=== PATIENT | male | born 1985 | race Caucasian/White ===

== ENCOUNTER 2020-05-11 22:20 | Inpatient (IN) | payer OTHER ==
[~2020-05-11] VITALS: Ht 182.9 cm; Wt 95.0 kg
[2020-05-11] MEDS ORDERED: FLUO20CA20 PO (23:00)
[2020-05-11] MEDS ORDERED: NALT50TA4 PO (23:01)
[2020-05-11 23:43] LABS: HEMATOCRIT 40.5 % (42.0-52.0); HEMOGLOBIN 13.7 g/dl (13.5-17.5); MEAN CORPUSCULAR HEMOGLOBIN 29.8 pg (27.0-33.0); MEAN CORPUSCULAR HGB CONC 33.8 g/dl (32.0-36.5); MEAN CORPUSCULAR VOLUME 88.2 fl (80.0-96.0); PLATELET COUNT, AUTOMATED 285 10^3/uL (150-450); RED BLOOD COUNT 4.59 10^6/uL (4.30-6.10); WHITE BLOOD COUNT 8.2 10^3/uL (4.0-10.0)
[2020-05-12 00:12] LABS: AMPHETAMINES LEVEL URINE NEGATIVE (NEGATIVE); BARBITURATES URINE NEGATIVE (NEGATIVE); BENZODIAZEPINES URINE NEGATIVE (NEGATIVE); CANNABINOIDS URINE NEGATIVE (NEGATIVE); COCAINE METABOLITE URINE NEGATIVE (NEGATIVE); METHADONE URINE NEGATIVE (NEGATIVE); OPIATES URINE NEGATIVE (NEGATIVE); PHENCYCLIDINE URINE NEGATIVE (NEGATIVE)
[2020-05-12 00:25] LABS: ACETAMINOPHEN LEVEL < 2.0 UG/ML (10.0-30.0); ALBUMIN 4.4 GM/DL (3.2-5.2); ALT/SGPT 40 U/L (12-78); BILIRUBIN,DIRECT 0.2 MG/DL (0.0-0.2); BILIRUBIN,TOTAL 0.7 MG/DL (0.2-1.0); BLOOD UREA NITROGEN 7 MG/DL (7-18); CALCIUM LEVEL 9.6 MG/DL (8.5-10.1); CARBON DIOXIDE LEVEL 30 MEQ/L (21-32); CHLORIDE LEVEL 104 MEQ/L (98-107); ETHYL ALCOHOL (ETHANOL) < 0.003 % (0.000-0.010); GLOMERULAR FILTRATION RATE > 60.0 (>60); GLUCOSE, FASTING 102 MG/DL (70-100); POTASSIUM SERUM 3.5 MEQ/L (3.5-5.1); SALICYLATE LEVEL < 1.7 MG/DL (5.0-30.0); SODIUM LEVEL 139 MEQ/L (136-145); TOTAL PROTEIN 7.6 GM/DL (6.4-8.2)
[2020-05-12] MEDS ORDERED: MOM 30ML SUSPENSION UDC PO PRN (01:45)
[2020-05-12] MEDS ORDERED: MAALOX 30 ML SUSP *UDC PO PRN (01:45)
[2020-05-12] MEDS ORDERED: ACETAMINOPHEN TAB 650MG DOSE (2X325MG) PO PRN (01:45)
[2020-05-12] MEDS ORDERED: LORazepam 2 MG TAB PO PRN (01:45)
[2020-05-12] MEDS ORDERED: BIMA01SOL OU (02:00)
[2020-05-12] MEDS ORDERED: HYDR50CA2 PO (02:00)
[2020-05-12] MEDS ORDERED: LOSA100T5 PO (02:00)
[2020-05-12 03:19] VITALS: BP 132/85
[2020-05-12 04:52] VITALS: BP 132/85
[2020-05-12] MEDS: LOSARTAN 50MG TABLET PO SCH (08:32)
[2020-05-12] MEDS: hydroCHLOROthiazide 25 MG TAB PO SCH (08:32)
[2020-05-12] MEDS: THIAMINE 100 MG TAB PO SCH ×2 (08:32→21:01)
[2020-05-12] MEDS: FLUoxetine 20 MG CAP PO SCH (08:32)
[2020-05-12] MEDS: hydrOXYzine 50 MG TAB PO SCH (08:33)
[2020-05-12] MEDS: NICOTINE 21MG/24HR 1 EA TRANSDERMAL TD SCH (08:34)
[2020-05-12] MEDS ORDERED: FOLIC ACID 1 MG TAB PO SCH (09:00)
[2020-05-12] MEDS ORDERED: MULTIVITAMINS/MINERALS THERAP 1 TAB PO SCH (09:00)
--- NOTE | 2020-05-12 11:21 | MHHPEPDOC ---
[facility] History & Physical History and Physical DATE OF ADMISSION: May 12, 2020 at 01:37 Subjective HPI: Ran presents today for concerns regarding his marriage and lack of medication. Patient denies hearing voices, staying up all night weeks at a time for no reason, history of trauma from combat. Patient denies any current suicidal thoughts. MEDICATIONS: Patient has run out of Fluoxetine. He has been off his medication for 5 days. Current medications include Prozac, prescribed by Lieutenant Colonel Kim from [place]. MEDICAL HISTORY: Patient has been going to [facility] for 8-9 years. He went to alcohol rehab in October at [place]. Patient has not ever been in a patient psychiatry setting before. FAMILY HISTORY: Patients sister has bipolar disorder and has been treated for it. SOCIAL HISTORY - OCCUPATION: Patient worked in the for 9.5 years, branch unspecified. 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 He states work is another stressor because hes under investigation for an unspecified action by a female co-worker. SOCIAL HISTORY - LIVING SITUATION: Patients of 12 years threw him out of their house. He hasnt been sleeping Tuesday. Last night was the first night that he got a proper sleep. Patients is now talking to another trista. Patient has kids and drives a motorcycle. Patient and his have had problems in the past including situations where shes thrown him out before, and another where shes left for 1-2 months and returns to give their relationship another chance. Patients americo jaramillo called the Police, who contacted the patient and brought an internal investigator to help him out with the situation of his marriage and calm him down. After the patient was thrown out by his , he lived in his car for a few days, then got a hotel so his kids could come stay with him for a bit, and then had to go to the field, hes planning on returning to the [employer]. SOCIAL HISTORY - SUBSTANCE USE: Patient has not consumed alcohol in 3 weeks. SOCIAL HISTORY - SMOKING: Patient smokes a pack of cigarettes daily and used to smoke marijuana when he was 15-18. Objective Appearance: Appears to be stated age. Well groomed. Well nourished. Behavior: Engaged. Pleasant. Cooperative with good eye contact. Affect: Full range. Appropriate to context. Mood: Generally good. Euthymic. Appropriately reactive. Speech: Spontaneous and Fluid. Normal rate. Normal volume. Motor: No gross motor abnormalities. Cognition: Alert, Attentive, and Oriented to person, place, time. Memory: No formal testing. No gross abnormalities of short or exterminator termite memory noted during interview. Thought Form: Linear and goal directed. Thought Content: No evidence of suicidal ideation. No evidence of aggressive or homicidal ideation. No thoughts of self harm. No evidence of delusions. Perception: No perceptual abnormalities noted. Judgement: Intact as evidenced by decision making in the recent past. Insight: Good insight into symptoms and treatment options. Assessment F43.20 Adjustment disorder, unspecified F10.11 Alcohol abuse, in remission Plan Continue Prozac 60 mg Observe extension on 939 for now. Well try to reduce stressors by helping facilitate [employer] placement and help reduce chances of suicide as my legacy has 1-3 days. Vital Signs Vital Signs Date Time Temp Pulse Resp B/P (MAP) Pulse Ox O2 Delivery O2 Flow Rate FiO2 05/12/20 08:32 132/85 05/12/20 04:52 97.5 69 16 100 Room Air Laboratory Data 24H Labs Laboratory Tests 2 05/11/20 23:31: Nucleated Red Blood Cells % (auto) 0.0, Anion Gap 5L, Glomerular Filtration Rate > 60.0, Calcium Level 9.6, Total Bilirubin 0.7, Direct Bilirubin 0.2, Aspartate Amino Transf (AST/SGOT) 22, Alanine Aminotransferase (ALT/SGPT) 40, Alkaline Phosphatase 81, Total Protein 7.6, Albumin 4.4, Albumin/Globulin Ratio 1.4, Thyroid Stimulating Hormone (TSH) 1.400, Salicylates Level < 1.7L, Urine Opiates Screen NEGATIVE, Urine Methadone Screen NEGATIVE, Acetaminophen Level < 2.0L, Urine Barbiturates Screen NEGATIVE, Urine Phencyclidine Screen NEGATIVE, Urine Amphetamines Screen NEGATIVE, Urine Benzodiazepines Screen NEGATIVE, Urine Cocaine Metabolite Screen NEGATIVE, Urine Cannabinoids Screen NEGATIVE, Ethyl Alcohol Level < 0.003 CBC/BMP Laboratory Tests 05/11/20 23:31 Medications Scheduled Bimatoprost (Lumigan) 0.01% 2.5ML Drops, 1 DROP OU QHS, (Reported) Fluoxetine Hcl (Fluoxetine HCl) 20 Mg Capsule, 60 MG PO DAILY, (Reported) Hydroxyzine Pamoate (Hydroxyzine Pamoate) 50 Mg Capsule, 50 MG PO DAILY, (Reported) Losartan/Hydrochlorothiazide (Losartan-Hctz 100-25 mg Tab) 1 Each Tablet, 1 TAB PO DAILY, (Reported) Naltrexone HCl (Naltrexone HCl) 50 Mg Tablet, 50 MG PO QHS, (Reported) Allergies Coded Allergies: No Known Allergies (Verified Allergy, Unknown, 05/12/20) MATTHEW JOY DO May 12, 2020 11:21
[2020-05-12 11:30] VITALS: BP 137/86
--- NOTE | 2020-05-12 11:55 | HPEPDOC ---
[facility] Medical History & Physical Date of Admission May 12, 2020 Date of Service: May 12, 2020 Attending Physician: BRANDON HARDWICK MD History and Physical CHIEF COMPLAINT: suicidal ideation HISTORY OF PRESENT ILLNESS: Mr. Art is a pleasant 34-year-old male, with a history of hypertension, glaucoma, etoh use disorder (on naltrexone) anxiety and depression. 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 He presented to the ED after family called police for suspected suicidal ideation. Patient recently from his spouse with whom he has 4 children. Separation occured due to excess drinking, per patient. Patient concerned that separation is irreconcilable. He developed thoughts of taking his own life. Family concerned, called MPs who brought him back from training exercises. States he denies active suicidal ideation. States that he has no plan. In the ED, UDS was negative. Alcohol level negative. On arrival, to ED BP 181/105. HR 61. SpOe 100%, RR 18. T 97.4. Of note, patient states that he follows up with Dr. Valadez in [place]. He reports having been told he has left ventricular hypertrophy. Denies a history of close family relatives sudden cardiac . He currently denies active or past chest pain, shortness of breath, fainting, lightheadedness, dizziness, palpitations. PAST MEDICAL HISTORY: HTN Glaucoma Depression Anxiety ETOH use disorder PAST SURGICAL HISTORY: L ankle orif SOCIAL HISTORY: Smoker 2 ppd, 10 pack year history ETOH use disorder, last drink 3 weeks ago Drinks 12-18 beers/day Active FAMILY HISTORY: Father - HTN Mother - HTN ALLERGIES: Please see below. REVIEW OF SYSTEMS: CONSTITUTIONAL: patient denies fevers, chills HEENT: patient denies blurred vision, loss of vision, headache,. CARDIOVASCULAR: patient denies chest pain, palpitations. RESPIRATORY: patient denies shortness of breath, cough, hemoptysis. GASTROINTESTINAL: patient denies abdominal pain, n/v/d, blood in stool. GENITOURINARY: patient denies dysuria, discharge. SKIN: patient denies rashes. MUSCULOSKELETAL: patient denies joint pain, neck pain. NEUROLOGICAL: patient denies focal weakness, numbness, seizures. PSYCHIATRIC: admitted for recent SI. Denies SI at this time, has no plan. ENDOCRINE: patient denies polyuria, heat intolerance, cold intolerance. HEMATOLOGIC/LYMPHATIC: patient denies easy bruising. HOME MEDICATIONS: Please see below. PHYSICAL EXAMINATION: VITAL SIGNS: please see below General: NAD, comfortable HEENT: PERRLA, EOMI, sclerae clear Neck: supple, normal ROM, no JVD Respiratory: lungs CTAB, no wheeze, no rales, no crackles CVS: RRR, normal S1, S2, no murmurs Abdo: soft, no masses, no hepatosplenomegaly, BS+, no rebound tenderness Extremities: no edema, pulses 2+ MSK: no joint deformities, normal ROM. L ankle incision scars, s/p orif. Neuro: no focal neuro deficits, moving all 4 extremities, CN2-12 intact. Strength 5/5 in all 4 extremities. No nystagmus. Psych: calm, cooperative, AAO x 3 LABORATORY DATA: See below. MICROBIOLOGY: Please see below. ASSESSMENT: 34 yo M with a hx of HTN, etoh use disorder, anxiety and depression, admitted to [facility] for suicidal ideation. Consulted hospitalist service for medical management. PLAN: SI: per psychiatry Depression/Anxiety: per psychiatry ETOH use disorder: CIWA, ativan prn, thiamine. Takes naltrexone. HTN: BP 132/85 this morning. states previously taking HCTZ, losartan. Follows with Dr. Valadez in [place], states hx of LVH on echo. Asymptomatic. No family hx of sudden cardiac . Agree to resume HCTZ 25 mg PO daily, losartan 100 mg daily follow up outpatient. Thank you very much for the consult. Please re-consult as appropriate. Vital Signs Vital Signs Date Time Temp Pulse Resp B/P (MAP) Pulse Ox O2 Delivery O2 Flow Rate FiO2 05/12/20 08:32 132/85 05/12/20 04:52 97.5 69 16 100 Room Air Laboratory Data Labs 24H Laboratory Tests 2 05/11/20 23:31: Nucleated Red Blood Cells % (auto) 0.0, Anion Gap 5L, Glomerular Filtration Rate > 60.0, Calcium Level 9.6, Total Bilirubin 0.7, Direct Bilirubin 0.2, Aspartate Amino Transf (AST/SGOT) 22, Alanine Aminotransferase (ALT/SGPT) 40, Alkaline Phosphatase 81, Total Protein 7.6, Albumin 4.4, Albumin/Globulin Ratio 1.4, Thyroid Stimulating Hormone (TSH) 1.400, Salicylates Level < 1.7L, Urine Opiates Screen NEGATIVE, Urine Methadone Screen NEGATIVE, Acetaminophen Level < 2.0L, Urine Barbiturates Screen NEGATIVE, Urine Phencyclidine Screen NEGATIVE, Urine Amphetamines Screen NEGATIVE, Urine Benzodiazepines Screen NEGATIVE, Urine Cocaine Metabolite Screen NEGATIVE, Urine Cannabinoids Screen NEGATIVE, Ethyl Alcohol Level < 0.003 CBC/BMP Laboratory Tests 05/11/20 23:31 Home Medications Scheduled Bimatoprost (Lumigan) 0.01% 2.5ML Drops, 1 DROP OU QHS Fluoxetine Hcl (Fluoxetine HCl) 20 Mg Capsule, 60 MG PO DAILY Hydroxyzine Pamoate (Hydroxyzine Pamoate) 50 Mg Capsule, 50 MG PO DAILY Losartan/Hydrochlorothiazide (Losartan-Hctz 100-25 mg Tab) 1 Each Tablet, 1 TAB PO DAILY Naltrexone HCl (Naltrexone HCl) 50 Mg Tablet, 50 MG PO QHS Allergies Coded Allergies: No Known Allergies (Verified Allergy, Unknown, 05/12/20) A-FIB/CHADSVASC A-FIB History Current/History of A-Fib/PAF?: No Current PO Anticoag Therapy: No BRANDON HARDWICK MD May 12, 2020 11:55
[2020-05-12 17:53] VITALS: BP 137/86
[2020-05-12 19:55] VITALS: BP 131/75
[2020-05-12] MEDS: traZODone 50 MG TAB PO PRN (21:01)
[2020-05-12] MEDS: NALTREXONE 50 MG TAB PO SCH (21:01)
[2020-05-13 04:30] VITALS: BP 129/70
[2020-05-13] MEDS: hydroCHLOROthiazide 25 MG TAB PO SCH (08:50)
[2020-05-13] MEDS: LOSARTAN 50MG TABLET PO SCH (08:51)
[2020-05-13] MEDS: FLUoxetine 20 MG CAP PO SCH (08:51)
[2020-05-13] MEDS: NICOTINE 21MG/24HR 1 EA TRANSDERMAL TD SCH (08:52)
[2020-05-13] MEDS: hydrOXYzine 50 MG TAB PO SCH (08:52)
--- NOTE | 2020-05-13 10:47 | MHIPNPDOC ---
[facility] Progress Note Progress Note DATE OF SERVICE: 05/13/20 Subjective HPI: Ran presents today for concerns regarding his discharge tomorrow. He denies headaches and stomachaches relating to his medication. MEDICATIONS: Current medications include Prozac. Patient would like a prescription for Atarax as it helped at night. Objective Appearance: Appears to be stated age. Well nourished. Well groomed. Behavior: Engaged. Cooperative with good eye contact. Pleasant. Affect: Full range. Appropriate to context. Mood: Appropriately reactive. Generally good. Euthymic. Speech: Normal volume. Spontaneous and Fluid. Normal rate. Motor: No gross motor abnormalities. Cognition: Alert, Attentive, and Oriented to person, place, time. Memory: No formal testing. No gross abnormalities of short or manager intermediate memory noted during interview. Thought Form: Linear and goal directed. Thought Content: No evidence of aggressive or homicidal ideation. No evidence of delusions. No evidence of suicidal ideation. No thoughts of self harm. Perception: No perceptual abnormalities noted. Judgement: Intact as evidenced by decision making in the recent past. Insight: Good insight into symptoms and treatment options. Assessment F43.20 Adjustment disorder, unspecified F10.11 Alcohol abuse, in remission Plan Continue Prozac. Discharge tomorrow, inform discharge planners. Vital Signs Vital Signs Date Time Temp Pulse Resp B/P (MAP) Pulse Ox O2 Delivery O2 Flow Rate FiO2 05/13/20 08:51 129/70 05/13/20 04:30 71 05/13/20 04:30 98.0 16 98 Room Air Current Medications Current Medications Medications (Trade) Dose Ordered Sig/Lara Route PRN Reason Start Time Stop Time Status Last Admin Dose Admin Acetaminophen (Tylenol Tab) 650 mg Q6HP PRN PO HEADACHE or DISCOMFORT 05/12/20 01:45 Al Hydrox/Mg Hydrox/Simethicone (Mylanta) 30 ml Q4HP PRN PO HEARTBURN/INDIGESTION 05/12/20 01:45 Fluoxetine HCl (PROzac) 60 mg DAILY PO 05/12/20 09:00 05/13/20 08:51 Folic Acid (Folic Acid) 1 mg DAILY PO 05/12/20 09:00 05/13/20 05:12 DC 05/12/20 08:33 Home Med (Med Rec Complete!) ASDIRECTED XX 05/12/20 01:00 05/12/20 00:59 DC Home Med (Med Rec Complete!) ASDIRECTED XX 05/12/20 02:15 05/12/20 02:06 DC Hydrochlorothiazide (Hydrodiuril) 25 mg DAILY PO 05/12/20 09:00 05/13/20 08:50 Hydroxyzine HCl (Atarax) 50 mg DAILY PO 05/12/20 09:00 05/13/20 08:52 Lorazepam (Ativan) 2 mg ASDIRECTED PRN PO SEE PROTOCOL 05/12/20 01:45 Cancel Losartan Potassium (Cozaar) 100 mg DAILY PO 05/12/20 09:00 05/13/20 08:51 Magnesium Hydroxide (Milk Of Magnesia) 30 ml DAILYPRN PRN PO CONSTIPATION 05/12/20 01:45 Multivitamins (Theragram-M) 1 tab DAILY PO 05/12/20 09:00 05/13/20 05:12 DC 05/12/20 08:33 Naltrexone HCl (Revia) 50 mg QHS PO 05/12/20 21:00 05/12/20 21:01 Nicotine (Nicoderm Cq 21mg) 1 patch DAILY TD 05/12/20 09:00 05/13/20 08:52 Thiamine HCl (Thiamine HCl) 100 mg BID PO 05/12/20 09:00 05/13/20 05:12 DC 05/12/20 21:01 Trazodone HCl (Desyrel) 50 mg QHSP PRN PO INSOMNIA 05/12/20 01:45 05/12/20 21:01 Allergies Coded Allergies: No Known Allergies (Verified Allergy, Unknown, 05/12/20) MATTHEW JOY DO May 13, 2020 10:47
[2020-05-13 18:10] VITALS: BP 136/74
[2020-05-13] MEDS: traZODone 50 MG TAB PO PRN (20:42)
[2020-05-13] MEDS: NALTREXONE 50 MG TAB PO SCH (20:42)
[2020-05-14 07:01] VITALS: BP 107/64
[2020-05-14] MEDS: FLUoxetine 20 MG CAP PO SCH (08:42)
[2020-05-14] MEDS: NICOTINE 21MG/24HR 1 EA TRANSDERMAL TD SCH (08:43)
[2020-05-14] MEDS: hydroCHLOROthiazide 25 MG TAB PO SCH (08:43)
[2020-05-14] MEDS: hydrOXYzine 50 MG TAB PO SCH (08:43)
[2020-05-14 08:45] VITALS: BP 126/80
[2020-05-14] MEDS: LOSARTAN 50MG TABLET PO SCH (08:45)
[2020-05-14] MEDS ORDERED: NICO21PAT TD (09:04)
[2020-05-14] MEDS ORDERED: HYDR50CA2 PO (09:04)
[2020-05-14] MEDS ORDERED: NALT50TA4 PO (09:04)
[2020-05-14] MEDS ORDERED: BIMA01SOL OU (09:04)
[2020-05-14] MEDS ORDERED: FLUO20CA20 PO (09:04)
[2020-05-14] MEDS ORDERED: LOSA100T5 PO (09:04)
--- NOTE | 2020-05-14 09:09 | MHDSPDOC ---
[facility] Discharge Summary Discharge Summary DATE OF ADMISSION: May 12, 2020 at 01:37 DATE OF DISCHARGE: May 14, 2020 at 11:10 DISCHARGE DIAGNOSES: F43.20 Adjustment disorder, unspecified F10.920 Alcohol use, unspecified with intoxication, uncomplicated CONSULTANTS INVOLVED:[ None (basic hospitalist screening)] REASON FOR ADMISSION & TREATMENT AND PROGRESS ON THE UNIT : Ran was admitted to an inpatient mental health unit after reportedly having suicidal thoughts. He is in recovery from alcohol, but had left his after she stated that she was interested in another man. He had been staying in a hotel room and reported that his symptoms worsened. He stopped taking his antidepressants and reported that he had further difficulties after doing so. Ran began to think of suicide and was then brought in and admitted. He did very well in the inpatient care unit, socializing about any behavior problems and found a group of peers to socialize with. General improvement seen after several days. Triaged him to go to the barracks to help avoid difficulties with his , which appeared to be a provoking problem for suicidal thoughts. MEDICATIONS: After admitted, he restarted his Prozac 60 mg PO QD, medications for his BP, and Naltrexone for his alcohol use. DISCHARGE ASSESSMENT[improved] Legal status considerations: The patient at the time of discharge did not meet criteria for involuntary admission/extension due to having a [normal] mental status exam, [fair] insight into the situation, They are engaged in the discharge process, as well as being friendly and amenable in behavioral control and havent been engaging in any observed concerning behavior or ideation recently. They decline voluntary extension/admission at this time and must be discharged in good pascual, as Im unable to make a case for holding the patient against their will. They may have historical risk factors of admissions and other interactions with psychiatry however, those are not modifiable from a clinical perspective. The patient will need to be discharged in good pascual. MENTAL STATUS EXAMINATION ON DISCHARGE: [General: Well dressed with good hygiene Speech: Spontaneous and fluid Thought processes: Linear and logical Thought content: Future orientated Abstract reasoning, and computation: Intact Description of associations: Intact Description of abnormal or psychotic thoughts:Denies any suicidal or homicidal ideation. Denies any auditory or visual hallucinations. Does not appear to be responding to internal stimuli. Does not appear to be endorsing any bizarre or paranoid ideation. Judgment: fair Insight: fair Orientation: Alert and orientated 3 Recent and remote memory: Intact Attention span and concentration: Intact Fund of knowledge: Adequate Mood: "okay" Affect: Euthymic with a full range] PLAN/FOLLOWUP ARRANGEMENTS: Follow up appointments made (PCP and MH in 5 days of D/C date) and safety plan completed. Safety Planning aspects completed prior to discharge [DOD: Weapons Profile 30 days] [Medication supplies limited to 7 days with 4 refills to prevent accumulation to OD] [RN reviewed crisis hotline information and other aspects to empower patient to access care in interim before next appointment.] Patient be removed from stressful situation plan is for patient to go to [facility] The amount of time spent in the coordination of care for this patient was approximately 30 minutes. Vital Signs/I&Os Vital Signs Date Time Temp Pulse Resp B/P (MAP) Pulse Ox O2 Delivery O2 Flow Rate FiO2 05/14/20 08:45 126/80 05/14/20 07:01 98.6 56 14 100 Room Air Medications Scheduled Bimatoprost (Lumigan) 0.01% 2.5ML Drops, 1 DROP OU QHS for eye for 30 Days, #1 Fluoxetine Hcl (Fluoxetine HCl) 20 Mg Capsule, 60 MG PO DAILY for mood for 7 Days, #21 Hydroxyzine Pamoate (Hydroxyzine Pamoate) 50 Mg Capsule, 50 MG PO DAILY for anxiety for 7 Days, #7 Losartan/Hydrochlorothiazide (Losartan-Hctz 100-25 mg Tab) 1 Each Tablet, 1 TAB PO DAILY for htn for 7 Days, #7 Naltrexone HCl (Naltrexone HCl) 50 Mg Tablet, 50 MG PO QHS for alcohol for 7 Days, #7 Nicotine (Nicotine Patch) 21 Mg Patch.td24, 1 PATCH TD DAILY for tobacco for 30 Days, #30 Allergies Coded Allergies: No Known Allergies (Verified Allergy, Unknown, 05/12/20) MATTHEW JOY DO May 14, 2020 09:09
== END 2020-05-14 11:10 | disposition home or self-care (01) | DRG 882 ==
LOC: EDBD 22:20 → M ED 22:20 → M ED INP 05-12 01:37 → M PSY 05-12 02:59
PROVIDERS: ADMIT Psychiatry & Neurology Addiction Medicine; ATTEND Psychiatry & Neurology Addiction Medicine
DX: F43.20 Adjustment disorder, unspecified (principal); R45.851 Suicidal ideations; F10.920 Alcohol use, unspecified with intoxication, uncomplicated; F17.210 Nicotine dependence, cigarettes, uncomplicated; I10 Essential (primary) hypertension; H40.9 Unspecified glaucoma; Z63.5 Disruption of family by separation and divorce; Z91.14 Patient's other noncompliance with medication regimen; Z79.899 Other long term (current) drug therapy